=== PATIENT | female | born 1940 | race Caucasian/White ===

== ENCOUNTER 2017-08-27 14:40 | Outpatient (CLI) | payer MEDICARE, BC ==
--- NOTE | 2017-08-27 16:27 | MMO ---
BILATERAL DIGITAL SCREENING MAMMOGRAMS WITH CAD 08/27/17 HISTORY: Right lumpectomy. Breast cancer in 2002. COMPARISON: Comparison made with exams of 06/29/14 and 04/28/13. There are scattered fibroglandular densities with benign calcifications. There is scarring in the ri ght breast. No suspicious masses or calcifications are identified. IMPRESSION: BI-RADS 2: Benign Finding(s) Routine annual screening mammography (for women over age 40). POS: NAM
== END 2017-08-27 14:41 | disposition home or self-care (01) ==
LOC: MAMMO 14:40
PROVIDERS: ATTEND Obstetrics & Gynecology
DX: Z12.31 Encounter for screening mammogram for malignant neoplasm of breast (principal)
CPT/HCPCS: 77067; G0202

== ENCOUNTER 2018-09-12 14:29 | Outpatient (CLI) | payer MEDICARE, BC | END 2018-09-12 14:30 | disposition home or self-care (01) | LOC: BICMAMMO 14:29 | PROVIDERS: ATTEND Family Medicine | DX: Z12.31 Encounter for screening mammogram for malignant neoplasm of breast (principal); Z80.3 Family history of malignant neoplasm of breast | CPT/HCPCS: 77063; 77067 ==

== ENCOUNTER 2023-05-10 14:25 | Outpatient (CLI) | payer MEDICARE, OTHER | END 2023-05-10 14:26 | disposition home or self-care (01) | LOC: BICMAMMO 14:25 | PROVIDERS: ATTEND Obstetrics & Gynecology | DX: N63.11 Unspecified lump in the right breast, upper outer quadrant (principal); N63.23 Unspecified lump in the left breast, lower outer quadrant; Z98.890 Other specified postprocedural states; Z91.89 Other specified personal risk factors, not elsewhere classified | CPT/HCPCS: 76642 ×2; 77066; G0279 ==

== ENCOUNTER 2023-12-02 10:32 | Outpatient (CLI) | payer MEDICARE, OTHER | END 2023-12-02 10:33 | disposition home or self-care (01) | LOC: BICRAD 10:32 | PROVIDERS: ATTEND Family Medicine | DX: M54.6 Pain in thoracic spine (principal) | CPT/HCPCS: 72072 ==

== ENCOUNTER 2024-03-26 05:34 | Day surgery (SDC) | payer MEDICARE ==
[2024-03-25 17:22] VITALS: BMI 20.2
[~2024-03-26 05:34] MED LIST: EPINEPHrine 0.3 MG in Ophthalmic Irrigation Solution 500 ML IRR SCH
[2024-03-26] MEDS ORDERED: PHENYLephrine 2.5% Ophth Soln 15 ml Bottle ONE (06:08)
[2024-03-26] MEDS ORDERED: Cyclopentolate 1% Opth Drop 2 ML BOT ONE (06:08)
[2024-03-26] MEDS ORDERED: fentaNYL 50 mcg/mL 1 mL Vial ONE (06:48)
[2024-03-26] MEDS ORDERED: PROPOFOL 20 ML ONE (06:48)
[2024-03-26] MEDS ORDERED: Dexamethasone 20 MG/5 ML VIAL ONE (07:14)
[2024-03-26] MEDS ORDERED: Lidocaine 1% PF 5 ML VIAL ONE (07:14)
[2024-03-26] MEDS ORDERED: Bupivacaine 0.75% 10 ML VIAL ONE (07:14)
[2024-03-26] MEDS ORDERED: Maxitrol 0.1% Opth Oint 3.5 GM TUBE ONE (07:14)
[2024-03-26] MEDS ORDERED: CEFAZOLIN 1 GM VIAL ONE ×2 (07:14)
[2024-03-26] MEDS ORDERED: Lidocaine 4% PF 5 ML AMP ONE (07:14)
== END 2024-03-26 08:15 | disposition home or self-care (01) ==
LOC: SDC 05:34
PROVIDERS: ATTEND Ophthalmology Retina Specialist
PROC: 08T43ZZ Resection of Right Vitreous, Percutaneous Approach (ICD-10-PCS; principal; 2024-03-26)
PROC: 08NE3ZZ Release Right Retina, Percutaneous Approach (ICD-10-PCS; 2024-03-26)
DX: H43.311 Vitreous membranes and strands, right eye (principal); Z88.5 Allergy status to narcotic agent
CPT/HCPCS: 67041; J3010; J0171; J0690; J1100; J2704; J3490